=== PATIENT | male | born 1980 | race Caucasian/White ===

== ENCOUNTER 2022-07-18 10:32 | Day surgery (SDC) | payer OTHER, SELFPAY ==
[2022-07-18 11:26] VITALS: BP 127/92; PULSE 62; RESP 18; TEMP 36.6; O2SAT 98; BMI 37.6
--- NOTE | 2022-07-18 12:57 | P.CONAN_ITS ---
HPI - Anesthesia Eval Consult details Narrative: 42 yo male patient for surveillance colonoscopy PMFSH Active Problems Active Problems: Increased BMI H/o EDWARD when younger. No longer using CPAP machine Past Medical History Medical History Anxiety Depression Hypothyroid Family History Family history of problems with anesthesia: No Surgical History Surgical History Hx of adenoidectomy Hx of colonoscopy Hx of hand surgery History of Problems with Anesthesia: No Social History Social History (Updated 07/18/22 @ 13:22 by Whitney Ness MD) Patient Tobacco Use Status: Former Tobacco user Substance Use Type: Marijuana Substance Use Frequency: Occasionally Last Used Substance: Unknown Are you DNR?: No Advance Directives: No Advance Directives Information Provided: Yes Nutrition Risks: No Nutritional Risk Meds Allergies Allergy/AdvReac Type Severity Reaction Status Date / Time No Known Allergies Allergy Verified 07/18/22 11:02 Active Medications: Current Medications Sodium Biphosphate/Sodium Phosphate (Sodium Phosphate,Talbot-Dibasic 133 Ml Enema) 133 ml WA ONCE PRN PRN Reason: Poor Colonoscopy Prep Results Home Medications Medication Instructions Recorded Confirmed Last Taken Type cholecalciferol (vitamin D3) 50 50 mcg PO DAILY 07/15/22 07/15/22 Unknown History mcg (2,000 unit) tablet (Vitamin D3) escitalopram oxalate 20 mg tablet 1 tab PO DAILY 07/15/22 07/15/22 Unknown History levothyroxine 100 mcg tablet 1 tab PO QAM 07/15/22 07/15/22 Unknown History Exam Exam Date and Time: July 18, 2022 1257 Height,Weight and Vital Signs: Height 5 ft 11 in Weight 122.47 kg Last Vital Signs Temp 97.8 F 07/18/22 11:26 Pulse 62 07/18/22 11:26 Resp 18 07/18/22 11:26 BP 127/92 H 07/18/22 11:26 Pulse Ox 98 07/18/22 11:26 O2 Del Method 07/18/22 11:26 Airway Mallampati Class: III TM Dist: >3cm Neck ROM: Full Loose/Missing/Broken Teeth: No (Denies broken, loose, missing teeth) Heart: RRR Lungs: CTAB Assessment and Plan Assessment Anesthesia Assessment: Anesthesia Plan Discussed and Chart Reviewed Final Anesthetic Review Family History of Problems with Anesthesia: No History of Problems with Anesthesia: No NPO: Yes ASA Class: III Final Preanesthetic Review: No Changes in Pt Med Stat, Meds/Allgs Chart Reviewed, Consent Obtained/Reviewed and Anes Risks/Benef Reviewed Patient Risk: Intermediate Procedure Risk: Low Assessment/Block/Sedation in SS: Assess/Block/Sedation-SS Anesthetic Plan Anesthetic Plan: MAC: Disposition: Standard PACU
[2022-07-18 14:04] VITALS: BP 109/57; PULSE 62; RESP 16; TEMP 36.4; O2SAT 98
--- NOTE | 2022-07-18 14:09 | P.BOP_ITS ---
Brief Operative Note Date of Service: 07/18/22 Pre-op diagnosis: Screening Post-op diagnosis: other (Colon polyp) Procedure: Colonoscopy to the cecum with hot snare polypectomy and placement of 3 Resolution clips on the polypectomy site at 40cm Surgeon: Kip Butler Anesthesia: MAC Was an Contact Lens Flashing Puncher used for this Procedure?: No Estimated blood loss (mL): 2.0 Pathology: other (A. Polyp at 40cm) Condition: stable Disposition: PACU
[2022-07-18 14:19] VITALS: BP 108/72; PULSE 63; RESP 18; TEMP 36.3; O2SAT 99
--- NOTE | 2022-07-19 01:29 | OP_ITS ---
SURGEON: Kip Butler MD INDICATIONS: The patient presents for evaluation of personal history of colon polyps and need for colorectal cancer screening. Full consent has been obtained from him for this, including risks of bleeding and perforation. PREOPERATIVE DIAGNOSIS: POSTOPERATIVE DIAGNOSIS: PROCEDURE PERFORMED: Colonoscopy to the cecum with hot snare polypectomy x 1 with placement of 3 resolution clips on the polypectomy site ESTIMATED BLOOD LOSS: COMPLICATIONS: ANESTHESIA: Medication Used: Monitored anesthesia care. ASSISTANTS: SPECIMENS: PREOPERATIVE DIAGNOSES: Colorectal cancer screening and personal history of colon polyps. POSTOPERATIVE DIAGNOSES: Colorectal cancer screening and personal history of colon polyps, colon polyp, internal hemorrhoids. DESCRIPTION OF PROCEDURE: The patient was placed in the left lateral decubitus position. The digital rectal exam revealed no abnormalities. The Olympus video pediatric colonoscope was entered into the rectum and advanced to the cecum with the assistance of abdominal wall pressure. Once in the cecum, I did identify normal-appearing cecal pouch with appendiceal orifice and a normal-appearing ileocecal valve. The entire cecum and ileocecal valve appeared normal. The scope was slowly withdrawn, assessing all mucosal surfaces carefully. Preparation was excellent. At 40 cm was an approximately 10 to 12 mm polyp on a short stalk, which was removed with hot snare polypectomy and then recovered by withdrawing it on the tip of scope. The scope was advanced back to the polypectomy site, which appeared clean, without any sign of residual polyp. There was some persistent oozing with irrigation and therefore 3 resolution clips were applied with good deployment and ultimately good hemostasis. The area was observed and irrigated further and there was no sign of any further bleeding. I did not visualize any other polyps, colitis, or angiodysplasia. In the rectum, the scope was retroflexed visualizing internal hemorrhoids, but no other pathology. The scope was straightened and withdrawn from the patient. He tolerated the procedure well and was returned to the recovery area in stable condition. IMPRESSION: 1. Colon polyps. 2. Internal hemorrhoids. PLAN: The results of the pathology will be checked. Given today's findings and his previous history, I would recommend a repeat colonoscopy in 3 years for further screening and surveillance. He was advised not to use any aspirin or NSAIDs for at least 1 week. He will otherwise see me on a p.r.n. basis. This has been discussed with his . MD CORINNA Belcher/FADI / [id number]
== END 2022-07-18 14:45 | disposition home or self-care (01) ==
PROVIDERS: PCP Hospitalist; Visit Provider Internal Medicine
PROC: 0DJD8ZZ Inspection of Lower Intestinal Tract, Via Natural or Artificial Opening Endoscopic (ICD-10-PCS; CPT 45378; principal; 2022-07-18 11:50)
DX: Z12.11 Encounter for screening for malignant neoplasm of colon (principal); Z86.010 Personal history of colon polyps; D12.5 Benign neoplasm of sigmoid colon; K64.8 Other hemorrhoids; E03.9 Hypothyroidism, unspecified; F41.8 Other specified anxiety disorders; Z79.899 Other long term (current) drug therapy; F12.90 Cannabis use, unspecified, uncomplicated; Z87.891 Personal history of nicotine dependence
CPT/HCPCS: 45385; 88305; J2405; J2765